=== PATIENT | male | born 1945 | race Caucasian/White ===

== ENCOUNTER 2018-12-09 07:09 | Day surgery (SDC) | payer MEDICARE, BC ==
[2018-12-09] VITALS (11 sets, daily range): BP systolic 127–153; BP diastolic 63–73; PULSE 62–76; RESP 16–21; Ht 175.3 cm; Wt 64.8 kg
[~2018-12-09] VITALS: Ht 175.3 cm; Wt 64.8 kg
[2018-12-09] MEDS ORDERED: ASPI-903 PO (08:22)
[2018-12-09] MEDS ORDERED: CARV6.2579 PO (08:22)
[2018-12-09] MEDS ORDERED: OMEG-144 PO (08:22)
[2018-12-09] MEDS ORDERED: MULT-276 PO (08:22)
[2018-12-09] MEDS ORDERED: UBID100C24 PO (08:22)
[2018-12-09] MEDS ORDERED: FOLI-49 PO (08:22)
[2018-12-09] MEDS ORDERED: SIMV20TA PO (08:22)
[2018-12-09] MEDS ORDERED: EPLE25TA PO (08:22)
--- NOTE | 2018-12-09 10:23 | PREAC ---
Date/Time of Note Date/Time of Note DATE: 12/09/18 TIME: 10: Anesthesia Eval and Record Evaluation Time Pre-Procedure Interview DATE: 12/09/18 TIME: 10:22 Age 73 Sex male NPO: 8 hrs Preoperative diagnosis pacemaker battery low Planned procedure pacemaker genererator change Past Medical History Past Medical History: Includes Cardio: HTN, Dyslipidemia, [place], CAD, Arrythmia, PPM/AICD, CHF Surgery & Anesthesia Issues No known issue Meds Anticoagulation: No Beta Fernando within 24 hr: No Reason Beta Fernando not given: Pt. not on B-Fernando Reported Medications Multivit,Tx,Iron/Calcm/FA/Mins (Thera-M Caplet) 1 Each Tablet, 1 TAB PO DAILY, TAB 12/09/18 Aspirin* (Aspirin* Chew) 81 Mg Tab.chew, 81 MG PO DAILY, TAB.CHEW 12/09/18 Ubidecarenone (Coq-10) 100 Mg Capsule, 300 MG PO BID, CAP 12/09/18 [place]-3/Dha/Epa/Fish Oil (Fish Oil 500 mg Softgel) 1 Each Capsule, 1 CAP PO DAILY, CAP 12/09/18 Folic Acid* (Folic Acid*) 1 Mg Tablet, 1 MG PO DAILY, TAB 12/09/18 Simvastatin* (Zocor*) 20 Mg Tablet, 20 MG PO QHS, #30 TAB 12/09/18 Eplerenone (Inspra) 25 Mg Tablet, 25 MG PO DAILY, TAB 12/09/18 Carvedilol* (Carvedilol*) 6.25 Mg Tablet, 6.25 MG PO TID, #60 TAB 12/09/18 Meds reviewed: Yes Allergies Coded Allergies: levofloxacin (Verified Allergy, Severe, HIVES, 12/09/18) Opioids-Methadone and Related (Verified Allergy, Unknown, NAUSEOUS, 12/09/18) Penicillins (Verified Allergy, Unknown, HIVES, 12/09/18) Quinolones (Verified Allergy, Unknown, HIVES, 12/09/18) meperidine (Verified Allergy, Unknown, NAUSEOUS, 12/09/18) tetanus toxoid, adsorbed (Verified Allergy, Unknown, FEVERISH, 12/09/18) Allergies Reviewed: Yes Labs/Studies Labs Reviewed: Reviewed by anesthesiologist Result Diagram: 12/09/18 0815 12/09/18 0815 Laboratory Tests 12/09/18 08:15 test: N/A Studies: ECG Pre-procedure Exam Last vitals Vital Signs Date Temp Pulse Resp B/P (MAP) Pulse Ox O2 O2 Flow FiO2 Time Delivery Rate 12/09/18 97.3 76 16 153/67 100 Room Air 08:24 (95) Airway: Adequate mouth opening, Adequate thyromental dist Mallampati: Mallampati II Teeth: Normal Lung: Normal Heart: Normal ASA Physical Status ASA physical status: 3 Emergency: None Planned Anesthetic General/MAC: Mask, MAC Pre-operative Attestations Prior to commencing anesthesia and surgery, the patient was re-evaluated, there was verification of: *The patient's identity *The results of appropriate recent lab work and preoperative vital signs *The above evaluation not changing prior to induction *Anesthetic plan, risk benefits, alternative and complications discussed with patient/family; questions answered; patient/family understands, accepts and wi shes to proceed. SADE CÁRDENAS Dec 09, 2018 10:23
[2018-12-09] MEDS ORDERED: METOCLOPRAMIDE 10 MG INJ IV PRN (10:30)
[2018-12-09] MEDS ORDERED: ONDANSETRON 4 MG INJ IV PRN (10:30)
[2018-12-09] MEDS ORDERED: CLINDAMYCIN 900 MG/D5W (PMX) 50 ML IVPB ONE (10:30)
[2018-12-09] MEDS ORDERED: ALBUTEROL 0.083% (NEB) 2.5 MG/3 ML AMP HHN PRN (10:30)
[2018-12-09] MEDS ORDERED: DIPHENHYDRAMINE 50 MG INJ IV PRN (10:30)
[2018-12-09] MEDS ORDERED: LIDOCAINE 1% (MDV) 20 ML INJ ONE (10:38)
[2018-12-09] MEDS ORDERED: SOD CHLORIDE 0.9% 500 ML ONE (10:38)
[2018-12-09] MEDS ORDERED: POLYMYXIN/BACITRACIN 1L IRRIG IRR ONE (11:00)
[2018-12-09] MEDS ORDERED: PROPOFOL 20 ML ONE (11:02)
--- NOTE | 2018-12-10 07:22 | PAC ---
Date/Time of Note Date/Time of Note DATE: 12/10/18 TIME: 07:22 Post-Anesthesia Notes Post-Anesthesia Note Last documented vital signs Vital Signs Date Temp Pulse Resp B/P (MAP) Pulse Ox O2 O2 Flow FiO2 Time Delivery Rate 12/09/18 97.2 69 18 127/63 97 13:10 (84) 12/09/18 Room Air 12:43 Activity: WNL Respiratory function: WNL Cardiovascular function: WNL Mental status: Baseline Pain reasonably controlled: Yes Hydration appropriate: Yes Nausea/Vomiting absent: Yes SADE CÁRDENAS Dec 10, 2018 07:22
== END 2018-12-09 13:32 | disposition home or self-care (01) ==
LOC: SDS 07:09 → CCL 07:09
PROVIDERS: ATTEND Internal Medicine Interventional Cardiology
DX: Z45.02 Encounter for adjustment and management of automatic implantable cardiac defibrillator (principal); I11.0 Hypertensive heart disease with heart failure; I50.9 Heart failure, unspecified; I25.10 Atherosclerotic heart disease of native coronary artery without angina pectoris; I25.2 Old myocardial infarction; E78.5 Hyperlipidemia, unspecified; Z79.82 Long term (current) use of aspirin
CPT/HCPCS: 33264; 71045; 76000; 80053; 81001; 85025; 85610; 85730; C1722; J7040